=== PATIENT | male | born 1975 | race Caucasian/White ===

== ENCOUNTER → 2018-04-01 13:55 | Outpatient (CLI) | payer OTHER, SELFPAY | PROVIDERS: PCP Family Medicine; Visit Provider Nurse Practitioner Family | DX: Z02.4 Encounter for examination for driving license (principal) ==

== ENCOUNTER → 2021-07-06 14:23 | Outpatient (CLI) | payer OTHER, SELFPAY | PROVIDERS: PCP Family Medicine; Visit Provider Family Medicine | DX: Z20.822 Contact with and (suspected) exposure to COVID-19 (principal) | CPT/HCPCS: U0003 ==

== ENCOUNTER 2021-12-28 17:02 | Emergency (ER) | payer OTHER, SELFPAY ==
[2021-12-28 17:23] VITALS: BP 142/92; PULSE 87; RESP 17; TEMP 37.1; O2SAT 98; BMI 26.1
--- NOTE | 2021-12-28 18:41 | XR_ITS ---
PROCEDURE INFORMATION: Exam: XR Chest Exam date and time: 12/28/2021 6:41 PM Age: 46 years old Clinical indication: Other: Possible seizure TECHNIQUE: Imaging protocol: XR of the chest. Views: 2 views. COMPARISON: No relevant prior studies available. FINDINGS: Lungs: Unremarkable. No consolidation. Pleural spaces: Unremarkable. No pleural effusion. No pneumothorax. Heart/Mediastinum: Unremarkable. No cardiomegaly. Bones/joints: Unremarkable. IMPRESSION: No acute findings.
[2021-12-28 18:56] LABS: Microscopic, Urine URINE MICROSCOPIC (MICROSCOPIC)
[2021-12-28 19:01] LABS: Basophils % 0.4 % (0.1-2.0); Eosinophils % 0.2 % (0.1-12.0); Hematocrit 38.6 % (42.0-52.0); Hemoglobin 13.1 g/dL (14.1-18.0); Lymphocytes # 1.2 K/mm3 (0.7-4.5); Lymphocytes % 21.1 % (10-50); Mean Corpuscular HGB Conc 33.8 g/dL (31.8-35.4); Mean Corpuscular Hemoglobin 31.3 pg (27.0-31.2); Mean Corpuscular Volume 92.6 fl (80-94); Mean Platelet Volume 8.4 fl (7.4-10.4); Monocytes # 0.3 K/mm3 (0.1-1.0); Monocytes % 6.1 % (1.7-9.3); Neutrophils % 72.3 % (37.0-80.0); Platelet Count 114 K/mm3 (142-424); Red Blood Count 4.17 M/mm3 (4.60-6.20); Red Cell Distribution Width 13.3 % (11.5-17.5); White Blood Count 5.6 K/mm3 (4.8-10.8)
[2021-12-28 19:03] LABS: Appearance,Urine CLEAR (Clear); Bilirubin,Urine Negative (Negative); Blood, Urine Negative (Negative); Color,Urine YELLOW (Yellow); Glucose,Urine (UA) Negative (Negative); Ketones,Urine Negative (Negative); Leukocyte Esterase,Urine Negative (Negative); Nitrate,Urine Negative (Negative); Protein,Urine Negative (Negative); Specific Gravity, Urine <= 1.005 (1.005-1.030); Urobilinogen,Urine 0.2 EU/dl (0.2)
[2021-12-28 19:07] LABS: Alanine Aminotransferase 51 U/L (12-78); Albumin Level 4.1 g/dl (3.5-5.0); Albumin/Globulin Ratio 1.7 (1.1-1.8); Alkaline Phosphatase 109 U/L (38-126); Anion Gap 8.5 mEq/L (5-15); Aspartate Amino Transferase 118 U/L (17-59); Bilirubin,Total 0.6 mg/dl (0.2-1.3); Blood Urea Nitrogen 8 mg/dl (9-20); Calcium 8.8 mg/dl (8.4-10.2); Carbon Dioxide 33 mmol/L (22.0-30.0); Chloride 101 mmol/L (98-107); Creatinine Clearance Estimated 159 mL/min (50-200); Estimated Glomerular Filt Rate 103 ml/min (>60); GFR (African American) 125 ML/MIN (>60); Globulin 2.4 g/dL (1.3-3.2); Glucose 98 mg/dl (74-100); Potassium 3.5 mmoL/L (3.5-5.1); Sodium 139 mmol/L (136-145); Total Protein,Serum 6.5 g/dl (6.3-8.2)
[2021-12-28 19:14] LABS: Amphetamine/Metha Screen,Urine Negative ng/ml (<1000); Barbiturates Screen,Urine Positive ng/ml (<200)
[2021-12-28 19:15] LABS: Benzodiazepines Screen,Urine Negative ng/ml (<200)
[2021-12-28 19:16] LABS: Cannabinoid Screen,Urine Positive ng/ml (<50); Cocaine Screen,Urine Negative ng/ml (<300); Ethyl Alcohol < 10 mg/dl (0-10)
[2021-12-28 19:17] LABS: Methadone Screen,Urine Negative ng/ml (<300)
[2021-12-28 19:18] LABS: Opiate Screen,Urine Negative ng/ml (<300); Phencyclidine Screen,Urine Negative ng/ml (<25)
[2021-12-28 19:32] LABS: RBC,Urine Occasional #/hpf (0-3); WBC,Urine Occasional #/hpf (0-3)
[2021-12-28 19:35] VITALS: BP 132/96; PULSE 86; O2SAT 100
--- NOTE | 2021-12-28 20:57 | [facility].EDALCO ---
ED Disposition Clinical Impression: Alcohol withdrawal seizure Qualifiers: Complication of substance-induced condition: uncomplicated Qualified Code(s): F10.230 - Alcohol dependence with withdrawal, uncomplicated; R56.9 - Unspecified convulsions Disposition: Home, Self-Care Condition on Discharge: Good Instructions: DI for Alcohol Use Disorder Additional Instructions: pt with alcohol use and has plans for rehab - has been stable in ed Referrals: Tati Gamez [Primary Care Provider] - - Critical Care Critical Care Time: No Attestation: On 12/28/21, the high probability of a clinically significant, sudden or life threatening deterioration of the following system(s) required my full and direct attention, intervention and personal management. The time I documented below is in addition to time spent performing reported procedures but includes the following listed in this critical care notation. Medical Decision Making - Medical Records Medical records reviewed: Yes: I reviewed the patient's medical records. - Andrey Inquiry Pt receiving controlled substance: No Vital Signs: 12/28/21 17:23 12/28/21 19:35 Temperature 98.7 F Temperature Source Oral Pulse Rate 86 Pulse Rate [Left Radial] 87 Respiratory Rate 17 Blood Pressure 132/96 H Blood Pressure [Right Arm] 142/92 H Blood Pressure Mean [Right Arm] 108 02 Sat by Pulse Oximetry 98 100 Oxygen Delivery Method Room Air - Lab Data Lab results reviewed: Yes: I reviewed the patient's lab results. Lab Results 12/28/21 18:45: WBC 5.6, RBC 4.17 L, Hgb 13.1 L, Hct 38.6 L, MCV 92.6, MCH 31.3 H, MCHC 33.8, RDW 13.3, Plt Count 114 L, MPV 8.4, Neut % (Auto) 72.3, Lymph % (Auto) 21.1, Atkinson % (Auto) 6.1, Eos % (Auto) 0.2, Baso % (Auto) 0.4, Neut # (Auto) 4.0, Lymph # (Auto) 1.2, Atkinson # (Auto) 0.3, Eos # (Auto) 0.0, Baso # (Auto) 0.0 12/28/21 18:45: Sodium 139, Potassium 3.5, Chloride 101, Carbon Dioxide 33 H, Anion Gap 8.5, BUN 8 L, Creatinine 0.80, Estimated Creat Clear 159, Estimated GFR 103, Est GFR ( Amer) 125, Glucose 98, Calcium 8.8, Total Bilirubin 0.6, AST 118 H, ALT 51, Alkaline Phosphatase 109, Total Protein 6.5, Albumin 4.1, Globulin 2.4, Albumin/Globulin Ratio 1.7 12/28/21 18:45: Urine Opiates Screen Negative, Urine Methadone Screen Negative, Ur Barbituates Screen Positive H, Ur Phencyclidine Scrn Negative, Ur Amphetamines Screen Negative, U Benzodiazepines Scrn Negative, Urine Cocaine Screen Negative, U Marijuana (THC) Screen Positive H 12/28/21 18:45: Plasma/Serum Alcohol < 10 12/28/21 18:53: Urine Color Yellow, Urine Appearance Clear, Urine pH 7.0, Ur Specific Nora <= 1.005, Urine Protein Negative, Urine Glucose (UA) Negative, Urine Ketones Negative, Urine Blood Negative, Urine Nitrate Negative, Urine Bilirubin Negative, Urine Urobilinogen 0.2, Ur Leukocyte Esterase Negative, Urine RBC Occasional, Urine WBC Occasional, Ur Squamous Epith Cells None, Urine Bacteria None Result diagrams: 12/28/21 18:45 12/28/21 18:45 Medical Decision Narrative: please call your pcp in am Alcohol HPI - General Chief Complaint: Alcohol Stated Complaint: Detox 2 hr seizure Time Seen by Provider: 12/28/21 20:57 Mode of Arrival: Ambulatory Source of Information: Patient, Medical Record Limitations: No Limitations Description of Symptoms (Recalled from ER Triage Doc. by RN): pt to ed c/o alcohol withdraw. pt states he had his last drink 5 days ago. pt states he has been drinking approx 40 shots of whiskey a day x6 months. pt states he had a seizure x2 hours ago. CIWA of 6 assessed. - History of Present Illness HPI narrative: pt with hx of etoh use and stopped drinking a few days ago reported had sz today - pt at baseline at this time MD complaint: alcohol withdrawal Last drink: days (ago) Chronic alcohol use: Yes Recent trauma: No Associated symptoms: seizure Treatments prior to arrival: none - Related Data Allergies Allergy/AdvReac Type Sev
[2021-12-28 21:04] VITALS: BP 154/100; PULSE 79; RESP 20; TEMP 36.8; O2SAT 99
== END 2021-12-28 21:10 | disposition home or self-care (01) ==
PROVIDERS: Student in an Organized Health Care Education/Training Program; Emergency Provider Emergency Medicine; PCP Family Medicine
DX: F10.230 Alcohol dependence with withdrawal, uncomplicated (principal); R56.9 Unspecified convulsions
CPT/HCPCS: 71046; 80053; 80305; 81001; 85025; 99282